=== PATIENT | female | born 1940 | race Caucasian/White ===

== ENCOUNTER → 2016-11-28 | Outpatient (CLI) | payer OTHER, BC ==
[~2016-11-28] MED LIST: AGG PO; AMLO-110 PO; CHOL4POW5 PO; CLR10 PO; GEMF600T3 PO; OLME40TA30 PO; TIMO0.2528 OPB
[2016-11-28 13:19] LABS: URINE APPEARANCE CLEAR (CLEAR); URINE BILIRUBIN NEG (NEG); URINE COLOR DK YELLOW; URINE EPITHELIAL CELL AUTO 0-5 /lpf (0-5); URINE NITRITE NEG (NEG); URINE PH 6.5 (4.5-7.5); URINE SPECIFIC GRAVITY 1.007 (1.000-1.030); UROBILINOGEN NEG (NEG)
[2016-11-28 13:24] LABS: MANUAL MICROSCOPIC REQUIRED? NO; REVIEW REQ? NO
== END | disposition home or self-care (01) ==
LOC: C.LAB1850 11:47
PROVIDERS: ATTEND Internal Medicine Pulmonary Disease
DX: N39.0 Urinary tract infection, site not specified (principal); R39.9 Unspecified symptoms and signs involving the genitourinary system

== ENCOUNTER → 2017-04-11 | Outpatient (CLI) | payer OTHER, BC ==
[2017-04-11 16:02] LABS: URINE APPEARANCE CLEAR (CLEAR); URINE BILIRUBIN NEG (NEG); URINE COLOR YELLOW; URINE NITRITE NEG (NEG); URINE PH 6.5 (4.5-7.5); URINE SPECIFIC GRAVITY 1.009 (1.000-1.030); UROBILINOGEN NEG (NEG)
[2017-04-11 16:15] LABS: MANUAL MICROSCOPIC REQUIRED? NO; REVIEW REQ? NO
== END | disposition home or self-care (01) ==
LOC: C.LAB1850 14:15
PROVIDERS: ATTEND Physician Assistant Medical
DX: R39.9 Unspecified symptoms and signs involving the genitourinary system (principal)

== ENCOUNTER → 2017-05-07 | Outpatient (CLI) | payer OTHER, BC ==
[2017-05-07 16:23] LABS: URINE APPEARANCE CLEAR (CLEAR); URINE BILIRUBIN NEG (NEG); URINE COLOR YELLOW; URINE NITRITE NEG (NEG); URINE PH 7.5 (4.5-7.5); URINE SPECIFIC GRAVITY 1.009 (1.000-1.030); UROBILINOGEN NEG (NEG)
[2017-05-07 16:34] LABS: MANUAL MICROSCOPIC REQUIRED? NO; REVIEW REQ? NO
== END | disposition home or self-care (01) ==
LOC: C.LAB1850 14:10
PROVIDERS: ATTEND Physician Assistant Medical
DX: R39.9 Unspecified symptoms and signs involving the genitourinary system (principal)

== ENCOUNTER → 2017-06-16 | Outpatient (CLI) | payer OTHER, BC ==
[2017-06-16 17:55] LABS: URINE APPEARANCE CLEAR (CLEAR); URINE BILIRUBIN NEG (NEG); URINE COLOR YELLOW; URINE NITRITE NEG (NEG); URINE PH 6.5 (4.5-7.5); URINE SPECIFIC GRAVITY 1.011 (1.000-1.030); UROBILINOGEN NEG (NEG)
[2017-06-16 17:58] LABS: MANUAL MICROSCOPIC REQUIRED? NO; REVIEW REQ? NO
== END | disposition home or self-care (01) ==
LOC: C.LAB1850 16:17
PROVIDERS: ATTEND Physician Assistant Medical
DX: R39.9 Unspecified symptoms and signs involving the genitourinary system (principal)

== ENCOUNTER → 2017-06-19 | Outpatient (CLI) | payer OTHER, BC ==
--- NOTE | 2017-06-19 11:37 | DIAGNOSTIC IMAGING REPORT ---
(RENAL)RETROPERITON COMP CLINICAL HISTORY: 77 years-old Female presenting with R39.9 Urinary symptom or signN39.0 Recurrent urinary tract infec. TECHNIQUE: Real-time grayscale and limited color Doppler ultrasound imaging of the kidneys and bladder was performed. COMPARISON: None. FINDINGS: Right kidney: Normal echogenicity. Right kidney measures 11.9 cm. No hydronephrosis. 3.8 cm simple appearing upper pole cyst. 4 mm hyperechogenic focus with subtle posterior shadowing and tingling artifact consistent with renal calculus. Normal perfusion. Left kidney: Normal echogenicity. Left kidney measures 11.4 cm. No hydronephrosis. 2.2 cm simple appearing cyst in the interpolar region. Additional subcentimeter cyst in the upper pole. Normal perfusion. Bladder: No bladder wall thickening. Bilateral ureteral jets present. Other: None. IMPRESSION: 1. 4 mm right renal calculus. No obstruction. 2. Bilateral simple renal cysts. Electronically signed by: Andrew Wong M.D. 06/19/2017 11:36 AM Dictated Date/Time: 06/19/2017 11:17 AM
== END | disposition home or self-care (01) ==
LOC: C.ULTR 10:21
PROVIDERS: ATTEND Physician Assistant Medical
DX: R39.9 Unspecified symptoms and signs involving the genitourinary system (principal); N28.1 Cyst of kidney, acquired; N20.0 Calculus of kidney

== ENCOUNTER → 2017-10-27 | Outpatient (CLI) | payer OTHER, BC ==
--- NOTE | 2017-10-28 14:37 | MAMMOGRAPHY REPORT ---
BILATERAL DIGITAL SCREENING MAMMOGRAM TOMOSYNTHESIS WITH CAD: 10/27/2017 CLINICAL HISTORY: Routine screening. TECHNIQUE: Breast tomosynthesis in addition to standard 2D mammography was performed. Current study was also evaluated with a Computer Aided Detection (CAD) system. COMPARISON: Comparison is made to exams dated: 08/08/2016 mammogram, 08/07/2015 mammogram, 08/02/2014 mammogram, 07/28/2013 mammogram, 07/27/2012 mammogram, and 07/25/2011 mammogram - [facility]. BREAST COMPOSITION: There are scattered areas of fibroglandular density in both breasts. FINDINGS: There is a possible area of architectural distortion in the lateral, middle to posterior l eft breast, best seen on cc tomosynthesis slice 29/61, for which additional spot compression tomosynt hesis views and possible ultrasound are recommended. There is stable nodular asymmetry in the slightly medial posterior left breast on the CC view, and st able asymmetry in the medial posterior right breast. Mild vascular calcification bilaterally. No oth er suspicious mass, architectural distortion or cluster of microcalcifications is seen. IMPRESSION: ACR BI-RADS CATEGORY 0: INCOMPLETE EVALUATION: NEED ADDITIONAL IMAGING EVALUATION The possible area of architectural distortion in the lateral left breast needs additional evaluation. The patient will be called to schedule an appointment. Approximately 10% of breast cancers are not detected with mammography. A negative mammographic report should not delay biopsy if a clinically suggestive mass is present. Ewa Pritchett M.D. ay/:10/27/2017 15:46:35 Electrician Wiring: David LIANG(R)(M), [facility] letter sent: Addl Imaging 0 BI-RADS Code: ACR BI-RADS Category 0: Incomplete Evaluation: Need Additional Imaging Evaluation
== END | disposition home or self-care (01) ==
LOC: C.MAMM 14:56
PROVIDERS: ATTEND Internal Medicine Pulmonary Disease
DX: Z12.31 Encounter for screening mammogram for malignant neoplasm of breast (principal); N64.89 Other specified disorders of breast

== ENCOUNTER → 2017-11-18 | Outpatient (CLI) | payer OTHER, BC ==
--- NOTE | 2017-11-19 15:23 | MAMMOGRAPHY REPORT ---
UNILATERAL LEFT DIGITAL DIAGNOSTIC MAMMOGRAM TOMOSYNTHESIS: 11/18/2017 CLINICAL HISTORY: Callback from screening mammography for possible area of architectural distortion i n the lateral left breast. TECHNIQUE: Spot compression tomosynthesis left cc and MLO views were obtained. COMPARISON: Comparison is made to exams dated: 10/27/2017 mammogram, 08/08/2016 mammogram, 08/07/2015 m ammogram, 02/22/2015 mammogram, 08/02/2014 mammogram, and 07/28/2013 mammogram - [facility]. BREAST COMPOSITION: There are scattered areas of fibroglandular density in the left breast. FINDINGS: The supplemental spot compression tomosynthesis views of the left upper outer breast demons trate no persistent distortion in the area of concern in the lateral posterior breast, best seen on t he CC view. There is no focal area of distortion, suspicious mass or other suspicious abnormality. An asymmetry in the lateral left breast on the CC view has been present and appears stable dating noah k to at least 2006, therefore considered benign. Recommend return to annual screening mammography sc jesus. IMPRESSION: ACR BI-RADS CATEGORY 2: BENIGN There is no persistent architectural distortion in the lateral, middle to posterior left breast along the anterior aspect of a stable asymmetry with the supplemental spot compression tomosynthesis views . This most likely represented overlapping fibrolinear markings, artifactual due to positioning. Th ere is no mammographic evidence of malignancy in the left breast. Recommend return to annual screeni ng mammography schedule. Approximately 10% of breast cancers are not detected with mammography. A negative mammographic report should not delay biopsy if a clinically suggestive mass is present. Ewa Pritchett M.D. ay/:11/18/2017 14:12:25 Trap Operator: Noris LIANG(R)(M), [facility] letter sent: Normal /2 BI-RADS Code: ACR BI-RADS Category 2: Benign
== END | disposition home or self-care (01) ==
LOC: C.MAMM 13:47
PROVIDERS: ATTEND Internal Medicine Pulmonary Disease
DX: N64.89 Other specified disorders of breast (principal)

== ENCOUNTER → 2017-11-20 | Outpatient (CLI) | payer OTHER, BC ==
[2017-11-20 13:14] LABS: BLOOD UREA NITROGEN 13 mg/dl (7-18); CALCIUM 9.3 mg/dl (8.5-10.1); CARBON DIOXIDE 27 mmol/L (21-32); CREATININE 0.68 mg/dl (0.60-1.20); GLUCOSE 80 mg/dl (70-99); POTASSIUM 3.9 mmol/L (3.5-5.1); SODIUM 123 mmol/L (136-145)
== END | disposition home or self-care (01) ==
LOC: C.LAB1850 11:36
PROVIDERS: ATTEND Physician Assistant Medical
DX: I10 Essential (primary) hypertension (principal)

== ENCOUNTER → 2017-12-01 | Outpatient (CLI) | payer OTHER, BC ==
[2017-12-01 15:01] LABS: BLOOD UREA NITROGEN 13 mg/dl (7-18); CALCIUM 9.1 mg/dl (8.5-10.1); CARBON DIOXIDE 28 mmol/L (21-32); CREATININE 0.77 mg/dl (0.60-1.20); GLUCOSE 90 mg/dl (70-99); POTASSIUM 3.6 mmol/L (3.5-5.1); SODIUM 126 mmol/L (136-145)
== END | disposition home or self-care (01) ==
LOC: C.LAB1850 13:39
PROVIDERS: ATTEND Physician Assistant Medical
DX: E87.1 Hypo-osmolality and hyponatremia (principal)

== ENCOUNTER 2023-07-14 10:23 | Observation (INO) ==
[2023-07-14] MEDS ORDERED: ASPIRIN CHEW 324 MG PO STA (10:42)
--- NOTE | 2023-07-14 10:44 | Emergency Department Note ---
Impression & Plan Chest pain, Acute UTI (urinary tract infection) ED Provider Note HISTORY OF PRESENT ILLNESS: Patient is an 83-year-old female presenting with substernal chest pain and shortness of breath. Patient reports symptoms started about 1 hour prior to arrival while she was walking up a short incline. Reports her shortness of breath has resolved but her chest tightness has continued. Denies ever having chest tightness like this before. Denies any DVT or PE history. Denies any history of cardiac stents. She is on generic Plavix for history of carotid artery narrowing. Reports that her chest pain feels like a tightness and like she cannot take a deep breath. Denies any nausea or vomiting. Denies any abdominal pain or back pain. Patient does report some dysuria over the last few days. She took a dose of Azo's yesterday. ROS: as above PHYSICAL EXAM: Constitutional: Patient appears in no acute distress. HENT: Head: Normocephalic and atraumatic. Eyes: EOMI, PERRL Mouth/Throat: Mucous membranes moist. Neck: Trachea midline. Neck supple. Cardiovascular: RRR, No murmurs, rubs or gallops. Intact distal pulses. Pulmonary/Chest: No respiratory distress. Breath sounds clear and equal bilaterally. No wheezes or rales Abdominal: Abdomen soft, no tenderness, rebound or guarding. Musculoskeletal: No edema, tenderness or deformity noted. Skin: Warm and dry. No rash, erythema, pallor or cyanosis Psychiatric: Appropriate mood and affect for situation. Neurological: Alert and keenly responsive. CN II-XII grossly intact, moving all extremities equally and fully. MDM: - Vitals signs stable. - History obtained via patient. Patient presents with chest pain and shortness of breath. Patient reports that about 1 hour prior to arrival she was walking up a short incline when she developed substernal chest tightness and shortness of breath. She reports her shortness of breath has improved but her chest night's has continued. Denies any DVT or PE history. She denies any history of cardiac stents. She is on Plavix for history of carotid artery stenosis. She has never had a stress test performed. Denies any nausea, vomiting, abdominal pain or back pain. - Chronic conditions affecting care: HTN; HLD - Differential diagnoses include, but are not limited to: Acute coronary syndrome; pulmonary embolism; dissection; tension pneumothorax; esophageal rupture; pneumonia - Order placed for continuous cardiac monitoring. At this time, monitor showed rate of 77 bpm with normal sinus rhythm, per my interpretation. - External medical records reviewed. No previous heart catheterization or stress test noted in chart. - EKG reviewed by myself showed normal sinus rhythm. Rate 93 bpm. QTc 425. No acute ischemic changes - Laboratory workup interpreted by myself showed normal WBC; hyponatremia (Na 128); normal creatinine; normal troponin; elevated dimer (640) - Biofire negative - CXR negative for pneumonia, per my interpretation - CT PE showed no PE but noted to have 7 mm irregular density in left lung apex. - Repeat troponin WNL. - UA showed evidence of infection. Given 2g IV rocephin. - Patient given 243 mg PO aspirin in ER, as she took 81 mg earlier today. - Heart score 4 (History +1 moderately suspicious; EKG +0; Age +2; Risk factors +1; Initial troponin +0), amounting to a moderate score. - Patient has had no formal chest pain rule out. She reports she has never had a stress test done. - Discussion was had with psychotherapist social worker about patient's case and need for admission - Hospitalist consulted for admission - Patient admitted to [facility] for further evaluation and management. ASSESSMENT AND PLAN: Diagnosis: Chest pain; UTI Plan: Admit Past Med/Surg History Medical History Arteriosclerotic cardiovascular disease (ASCVD) Chronic cerebral ischemia Dyslipidemia Glaucoma History of Mohs micrographic surgery for skin cancer History of recurrent UTIs History of skin cancer Hypertension Osteopenia Seasonal allergies Sensorineural hearing loss of both ears Transient ischemic attack Vulvitis Surgical History H/O carotid endarterectomy History of anesthesia reaction History of cataract surgery History of tooth extraction History of total hysterectomy with bilateral salpingo-oophorectomy (BSO) Hx of colonoscopy (~2012) S/P nasal surgery Family History Mother Hearing loss Hypertension Asthma Grandfather Stroke Grandmother Colorectal cancer Other Allergies Dementia No family history of adverse response to anesthesia No family history of bleeding disorder Denies family history of Ovarian cancer Heart disease Kidney disease Breast cancer Uterine cancer Social History Smoking Status: Former smoker Second Hand Exposure: Yes ( A CHILD); Do You Dip or Chew Tobacco: No; Hx Alcohol Use: No Hx Substance Use: No Preferred Language: [place] Assistant Required: No Beliefs That Will Affect Care: None marital status: Current Living Situation: Spouse current occupational status: retired Feels Safe at Home: Yes Assistive Devices: Hearing Aid - Bilateral Allergies Allergies Allergy/AdvReac Type Severity Reaction Status Date / Time [id number] Reductase Allergy Intermediate numbness, Verified 03/26/23 14:58 Inhibitor twitches [[id number] Reductase Inhibitor] Sulfa (Sulfonamide AdvReac Intermediate Feeling Verified 03/26/23 14:58 Antibiotics) "bad" Home Meds Home Medications Medication Instructions Recorded Confirmed magnesium 1 cap PO DAILY 07/14/23 07/14/23 multivitamin with minerals 1 tab PO DAILY 07/14/23 07/14/23 (Hair,Skin and Nails tablet) Previous Rx's Medication Instructions Recorded hydralazine 25 mg tablet 25 mg PO .COMPLEX #30 tabs 10/11/21 aspirin 25 mg-dipyridamole 200 mg See Rx Instructions .Route 09/24/22 capsule,ext.release 12 hr .COMPLEX #180 caps multiphase amlodipine 5 mg tablet 5 mg PO DAILY #90 tabs 09/26/22 verapamil 360 mg 24 hr 360 mg PO DAILY #90 caps 09/26/22 capsule,extended release spironolactone 50 mg tablet 50 mg PO DAILY #90 tabs 12/19/22 cholestyramine-aspartame 4 gram 4 g PO BID #180 packets 05/12/23 oral powder (Prevalite) Results & Data (ED) Vital Signs Vital Signs - 24 hr 07/14/23 10:30 07/14/23 10:38 07/14/23 10:38 Temperature 36.4 C L Temperature Source Temporal Artery Scan Pulse Rate 97 H Pulse Rate [Apical] 90 Pulse Rate from SpO2 Sensor Respiratory Rate 20 20 Respiratory Effort / Characteristics Non-Labored Respiratory Depth Normal Blood Pressure 139/73 Blood Pressure [Right Arm] 150/73 H Blood Pressure Mean 95 Blood Pressure Mean [Right Arm] 98 Blood Pressure Position [Right Arm] Pulse Oximetry 96 95 95 Oxygen Delivery Method Room Air Room Air Room Air Sepsis Recent Fever Within 48 Hours No Sepsis New/Unexplained Change in Mental Status N/A Sepsis Action Taken by Nursing No Action Required 07/14/23 10:38 07/14/23 10:40 07/14/23 10:50 Temperature Temperature Source Pulse Rate 84 82 Pulse Rate [Apical] Pulse Rate from SpO2 Sensor 84 82 Respiratory Rate 17 17 Respiratory Effort / Characteristics Respiratory Depth Blood Pressure Blood Pressure [Right Arm] Blood Pressure Mean Blood Pressure Mean [Right Arm] Blood Pressure Position [Right Arm] Pulse Oximetry 95 96 95 Oxygen Delivery Method Room Air Sepsis Recent Fever Within 48 Hours Sepsis New/Unexplained Change in Mental Status Sepsis Action Taken by Nursing 07/14/23 11:00 07/14/23 11:10 07/14/23 11:20 Temperature Temperature Source Pulse Rate 83 85 86 Pulse Rate [Apical] Pulse Rate from SpO2 Sensor 83 84 85 Respiratory Rate 22 19 20 Respiratory Effort / Characteristics Respiratory Depth Blood Pressure Blood Pressure [Right Arm] Blood Pressure Mean Blood Pressure Mean [Right Arm] Blood Pressure Position [Right Arm] Pulse Oximetry 95 96 94 Oxygen Delivery Method Sepsis Recent Fever Within 48 Hours Sepsis New/Unexplained Change in Mental Status Sepsis Action Taken by Nursing 07/14/23 11:30 07/14/23 11:40 07/14/23 11:50 Temperature Temperature Source Pulse Rate 79 73 74 Pulse Rate [Apical] Pulse Rate from SpO2 Sensor 80 73 72 Respiratory Rate 19 14 16 Respiratory Effort / Characteristics Respiratory Depth Blood Pressure Blood Pressure [Right Arm] Blood Pressure Mean Blood Pressure Mean [Right Arm] Blood Pressure Position [Right Arm] Pulse Oximetry 96 98 96 Oxygen Delivery Method Sepsis Recent Fever Within 48 Hours Sepsis New/Unexplained Change in Mental Status Sepsis Action Taken by Nursing 07/14/23 12:00 07/14/23 12:10 07/14/23 12:25 Temperature Temperature Source Pulse Rate 70 71 Pulse Rate [Apical] Pulse Rate from SpO2 Sensor 70 71 77 Respiratory Rate 11 L 23 Respiratory Effort / Characteristics Respiratory Depth Blood Pressure Blood Pressure [Right Arm] Blood Pressure Mean Blood Pressure Mean [Right Arm] Blood Pressure Position [Right Arm] Pulse Oximetry 96 98 94 Oxygen Delivery Method Sepsis Recent Fever Within 48 Hours Sepsis New/Unexplained Change in Mental Status Sepsis Action Taken by Nursing 07/14/23 13:07 07/14/23 12:35 07/14/23 13:00 Temperature Temperature Source Pulse Rate 81 90 Pulse Rate [Apical] Pulse Rate from SpO2 Sensor 69 89 Respiratory Rate 24 Respiratory Effort / Characteristics Respiratory Depth Blood Pressure Blood Pressure [Right Arm] Blood Pressure Mean Blood Pressure Mean [Right Arm] Blood Pressure Position [Right Arm] Pulse Oximetry 97 93 Oxygen Delivery Method Sepsis Recent Fever Within 48 Hours Sepsis New/Unexplained Change in Mental Status Sepsis Action Taken by Nursing 07/14/23 13:10 07/14/23 15:02 07/14/23 17:05 Temperature Temperature Source Pulse Rate 73 78 Pulse Rate [Apical] 77 Pulse Rate from SpO2 Sensor 74 Respiratory Rate 15 16 Respiratory Effort / Characteristics Respiratory Depth Blood Pressure Blood Pressure [Right Arm] 141/92 H Blood Pressure Mean Blood Pressure Mean [Right Arm] 108 Blood Pressure Position [Right Arm] Semi-fowlers Pulse Oximetry 96 95 Oxygen Delivery Method Room Air Sepsis Recent Fever Within 48 Hours Sepsis New/Unexplained Change in Mental Status Sepsis Action Taken by Nursing 07/14/23 17:09 Temperature Temperature Source Pulse Rate Pulse Rate [Apical] 77 Pulse Rate from SpO2 Sensor Respiratory Rate 17 Respiratory Effort / Characteristics Respiratory Depth Blood Pressure Blood Pressure [Right Arm] 121/74 Blood Pressure Mean Blood Pressure Mean [Right Arm] 89 Blood Pressure Position [Right Arm] Semi-fowlers Pulse Oximetry 95 Oxygen Delivery Method Room Air Sepsis Recent Fever Within 48 Hours Sepsis New/Unexplained Change in Mental Status Sepsis Action Taken by Nursing Laboratory Data 07/14/23 10:38 07/14/23 10:38 Lab Results 07/14/23 07/14/23 07/14/23 Range/Units 10:35 10:38 10:38 WBC 7.91 (4.8-10.8) K/ul RBC 4.43 (4.20-5.40) M/uL Hgb 13.8 (12.0-16.0) g/dl Hct 40.5 (37.0-47.0) % MCV 91.4 (80.0-100.0) fL MCH 31.2 (25.0-34.0) pg MCHC 34.1 (32.0-36.0) g/dL RDW Std Deviation 42.0 (36.4-46.3) fL RDW Coeff of Renny 12.6 (11.5-14.5) % Plt Count 412 H (130-400) K/uL MPV 9.0 L (9.4-12.4) fL Immature Gran % (Auto) 0.5 % Neut % (Auto) 69.3 % Lymph % (Auto) 18.8 % Dyer % (Auto) 9.6 % Eos % (Auto) 1.3 % Baso % (Auto) 0.5 % Neut # (Auto) 5.48 (1.40-6.50) K/uL Lymph # (Auto) 1.49 (1.20-3.40) K/uL Dyer # (Auto) 0.76 H (0.11-0.59) K/uL Eos # (Auto) 0.10 (0.00-0.50) K/uL Baso # (Auto) 0.04 (0.00-0.20) K/uL Immature Gran # (Auto) 0.04 (0.01-0.20) K/uL PT 10.6 (9.0-12.0) Seconds INR 1.0 (0.9-1.1) D-Dimer 640 H* (0-500) ug/L FEU VBG pH (7.36-7.41) VBG pCO2 (38-50) mmHg VBG pO2 mmHg VBG HCO3 mmol/L VBG O2 Saturation % VBG Base Excess mEq/L Sodium (136-145) mmol/L Potassium (3.5-5.1) mmol/L Chloride (98-107) mmol/L Carbon Dioxide (21-32) mmol/L Anion Gap (3-11) BUN (6-23) mg/dl Creatinine (0.6-1.2) mg/dl Est Cr Clr Drug Dosing ml/min Est GFR ( Amer) ml/min Est GFR (Non-Af Amer) ml/min BUN/Creatinine Ratio (10-20) Glucose (70-99(Fasting)) mg/dl Calcium (8.6-10.3) mg/dl Magnesium (1.7-2.4) mg/dl Total Bilirubin (0.2-1.0) mg/dl AST (13-39) U/L ALT (7-52) U/L Alkaline Phosphatase (34-104) U/L Troponin I High Sens (0-14) pg/ml B-Natriuretic Peptide (0-100) pg/ml Total Protein (6.0-8.3) gm/dl Albumin (3.4-5.0) gm/dl Globulin (2.5-4.0) gm/dl Albumin/Globulin Ratio (0.9-2) Urine Color Urine Appearance (Clear) Urine pH (4.5-7.5) Ur Specific [place] (1.000-1.030) Urine Protein (Negative) Urine Glucose (UA) (Negative) Urine Ketones (Negative) Urine Blood (Negative) Urine Nitrite (Negative) Urine Bilirubin (Negative) Urine Urobilinogen (Negative) Ur Leukocyte Esterase (Negative) Urine WBC (Auto) (0-5) /hpf Urine RBC (Auto) (0-4) /hpf U Hyaline Cast (Auto) (0-5) /lpf U Epithel Cells (Auto) (0-5) /lpf Urine Bacteria (Auto) (Negative) Adenovirus (PCR) Not Detected (NotDetected) B. pertussis DNA (PCR) Not Detected (NotDetected) B.parapertussis DNA PCR Not Detected (NotDetected) C. pneumoniae DNA (PCR) Not Detected (NotDetected) Coronavirus OC43 (PCR) Not Detected (NotDetected) Coronavirus HKU1 (PCR) Not Detected (NotDetected) Coronavirus 229E (PCR) Not Detected (NotDetected) SARS-CoV-2 (PCR) Not Detected (NotDetected) Coronavirus NL63 (PCR) Not Detected (NotDetected) Human Metapneumovir PCR Not Detected (NotDetected) Influenza Type A (PCR) Not Detected (NotDetected) Influenza Type B (PCR) Not Detected (NotDetected) M. pneumoniae (PCR) Not Detected (NotDetected) Parainfluenza 1 (PCR) Not Detected (NotDetected) Parainfluenza 2 (PCR) Not Detected (NotDetected) Parainfluenza 3 (PCR) Not Detected (NotDetected) Parainfluenza 4 (PCR) Not Detected (NotDetected) RSV (PCR) Not Detected (NotDetected) Entero/Rhino (PCR) Not Detected (NotDetected) 07/14/23 07/14/23 07/14/23 Range/Units 10:38 10:38 10:41 WBC (4.8-10.8) K/ul RBC (4.20-5.40) M/uL Hgb (12.0-16.0) g/dl Hct (37.0-47.0) % MCV (80.0-100.0) fL MCH (25.0-34.0) pg MCHC (32.0-36.0) g/dL RDW Std Deviation (36.4-46.3) fL RDW Coeff of Renny (11.5-14.5) % Plt Count (130-400) K/uL MPV (9.4-12.4) fL Immature Gran % (Auto) % Neut % (Auto) % Lymph % (Auto) % Dyer % (Auto) % Eos % (Auto) % Baso % (Auto) % Neut # (Auto) (1.40-6.50) K/uL Lymph # (Auto) (1.20-3.40) K/uL Dyer # (Auto) (0.11-0.59) K/uL Eos # (Auto) (0.00-0.50) K/uL Baso # (Auto) (0.00-0.20) K/uL Immature Gran # (Auto) (0.01-0.20) K/uL PT (9.0-12.0) Seconds INR (0.9-1.1) D-Dimer (0-500) ug/L FEU VBG pH 7.38 (7.36-7.41) VBG pCO2 41 (38-50) mmHg VBG pO2 43 mmHg VBG HCO3 24 mmol/L VBG O2 Saturation 78.4 % VBG Base Excess -0.8 mEq/L Sodium 128 L (136-145) mmol/L Potassium 4.2 (3.5-5.1) mmol/L Chloride 97 L (98-107) mmol/L Carbon Dioxide 24 (21-32) mmol/L Anion Gap 7 (3-11) BUN 13 (6-23) mg/dl Creatinine 0.74 (0.6-1.2) mg/dl Est Cr Clr Drug Dosing 50.1 ml/min Est GFR ( Amer) 86.2 ml/min Est GFR (Non-Af Amer) 74.4 ml/min BUN/Creatinine Ratio 17.6 (10-20) Glucose 103 H (70-99(Fasting)) mg/dl Calcium 9.6 (8.6-10.3) mg/dl Magnesium 2.1 (1.7-2.4) mg/dl Total Bilirubin 0.4 (0.2-1.0) mg/dl AST 16 (13-39) U/L ALT 13 (7-52) U/L Alkaline Phosphatase 111 H (34-104) U/L Troponin I High Sens 2.8 (0-14) pg/ml B-Natriuretic Peptide 33 (0-100) pg/ml Total Protein 8.2 (6.0-8.3) gm/dl Albumin 4.5 (3.4-5.0) gm/dl Globulin 3.7 (2.5-4.0) gm/dl Albumin/Globulin Ratio 1.2 (0.9-2) Urine Color Urine Appearance (Clear) Urine pH (4.5-7.5) Ur Specific [place] (1.000-1.030) Urine Protein (Negative) Urine Glucose (UA) (Negative) Urine Ketones (Negative) Urine Blood (Negative) Urine Nitrite (Negative) Urine Bilirubin (Negative) Urine Urobilinogen (Negative) Ur Leukocyte Esterase (Negative) Urine WBC (Auto) (0-5) /hpf Urine RBC (Auto) (0-4) /hpf U Hyaline Cast (Auto) (0-5) /lpf U Epithel Cells (Auto) (0-5) /lpf Urine Bacteria (Auto) (Negative) Adenovirus (PCR) (NotDetected) B. pertussis DNA (PCR) (NotDetected) B.parapertussis DNA PCR (NotDetected) C. pneumoniae DNA (PCR) (NotDetected) Coronavirus OC43 (PCR) (NotDetected) Coronavirus HKU1 (PCR) (NotDetected) Coronavirus 229E (PCR) (NotDetected) SARS-CoV-2 (PCR) (NotDetected) Coronavirus NL63 (PCR) (NotDetected) Human Metapneumovir PCR (NotDetected) Influenza Type A (PCR) (NotDetected) Influenza Type B (PCR) (NotDetected) M. pneumoniae (PCR) (NotDetected) Parainfluenza 1 (PCR) (NotDetected) Parainfluenza 2 (PCR) (NotDetected) Parainfluenza 3 (PCR) (NotDetected) Parainfluenza 4 (PCR) (NotDetected) RSV (PCR) (NotDetected) Entero/Rhino (PCR) (NotDetected) 07/14/23 07/14/23 Range/Units 14:10 Unknown WBC (4.8-10.8) K/ul RBC (4.20-5.40) M/uL Hgb (12.0-16.0) g/dl Hct (37.0-47.0) % MCV (80.0-100.0) fL MCH (25.0-34.0) pg MCHC (32.0-36.0) g/dL RDW Std Deviation (36.4-46.3) fL RDW Coeff of Renny (11.5-14.5) % Plt Count (130-400) K/uL MPV (9.4-12.4) fL Immature Gran % (Auto) % Neut % (Auto) % Lymph % (Auto) % Dyer % (Auto) % Eos % (Auto) % Baso % (Auto) % Neut # (Auto) (1.40-6.50) K/uL Lymph # (Auto) (1.20-3.40) K/uL Dyer # (Auto) (0.11-0.59) K/uL Eos # (Auto) (0.00-0.50) K/uL Baso # (Auto) (0.00-0.20) K/uL Immature Gran # (Auto) (0.01-0.20) K/uL PT (9.0-12.0) Seconds INR (0.9-1.1) D-Dimer (0-500) ug/L FEU VBG pH (7.36-7.41) VBG pCO2 (38-50) mmHg VBG pO2 mmHg VBG HCO3 mmol/L VBG O2 Saturation % VBG Base Excess mEq/L Sodium (136-145) mmol/L Potassium (3.5-5.1) mmol/L Chloride (98-107) mmol/L Carbon Dioxide (21-32) mmol/L Anion Gap (3-11) BUN (6-23) mg/dl Creatinine (0.6-1.2) mg/dl Est Cr Clr Drug Dosing ml/min Est GFR ( Amer) ml/min Est GFR (Non-Af Amer) ml/min BUN/Creatinine Ratio (10-20) Glucose (70-99(Fasting)) mg/dl Calcium (8.6-10.3) mg/dl Magnesium (1.7-2.4) mg/dl Total Bilirubin (0.2-1.0) mg/dl AST (13-39) U/L ALT (7-52) U/L Alkaline Phosphatase (34-104) U/L Troponin I High Sens 2.7 (0-14) pg/ml B-Natriuretic Peptide (0-100) pg/ml Total Protein (6.0-8.3) gm/dl Albumin (3.4-5.0) gm/dl Globulin (2.5-4.0) gm/dl Albumin/Globulin Ratio (0.9-2) Urine Color Dark Yellow Urine Appearance Clear (Clear) Urine pH 7.5 (4.5-7.5) Ur Specific [place] 1.007 (1.000-1.030) Urine Protein Negative (Negative) Urine Glucose (UA) Negative (Negative) Urine Ketones Negative (Negative) Urine Blood Negative (Negative) Urine Nitrite Positive A (Negative) Urine Bilirubin Negative (Negative) Urine Urobilinogen Negative (Negative) Ur Leukocyte Esterase 2+ H (Negative) Urine WBC (Auto) >30 H (0-5) /hpf Urine RBC (Auto) 0-4 (0-4) /hpf U Hyaline Cast (Auto) 1-5 (0-5) /lpf U Epithel Cells (Auto) 0-5 (0-5) /lpf Urine Bacteria (Auto) 1+ H (Negative) Adenovirus (PCR) (NotDetected) B. pertussis DNA (PCR) (NotDetected) B.parapertussis DNA PCR (NotDetected) C. pneumoniae DNA (PCR) (NotDetected) Coronavirus OC43 (PCR) (NotDetected) Coronavirus HKU1 (PCR) (NotDetected) Coronavirus 229E (PCR) (NotDetected) SARS-CoV-2 (PCR) (NotDetected) Coronavirus NL63 (PCR) (NotDetected) Human Metapneumovir PCR (NotDetected) Influenza Type A (PCR) (NotDetected) Influenza Type B (PCR) (NotDetected) M. pneumoniae (PCR) (NotDetected) Parainfluenza 1 (PCR) (NotDetected) Parainfluenza 2 (PCR) (NotDetected) Parainfluenza 3 (PCR) (NotDetected) Parainfluenza 4 (PCR) (NotDetected) RSV (PCR) (NotDetected) Entero/Rhino (PCR) (NotDetected) Administered Medications Discontinued Medications Aspirin (Aspirin Chew 324 Mg) 243 mg PO NOW STA Stop: 07/14/23 10:43 Last Admin: 07/14/23 10:47 Dose: 243 mg Documented By: KV Ceftriaxone Sodium (Rocephin) 2,000 mg in 70 mls @ 140 mls/hr IV NOW STA Stop: 07/14/23 14:21 Last Infusion: 07/14/23 14:59 Dose: 0 mls/hr Documented By: Admin: 07/14/23 14:07 Dose: 140 mls/hr Documented By: KV Sodium Chloride (Nss) 500 mls @ 999 mls/hr IV .Q31M ONE Stop: 07/14/23 14:30 Last Infusion: 07/14/23 15:00 Dose: 0 mls/hr Documented By: Admin: 07/14/23 14:07 Dose: 999 mls/hr Documented By: KV Ioversol (Optiray 320 500ml) 118 ml IV ONCE ONE Stop: 07/14/23 13:00 Last Admin: 07/14/23 13:00 Dose: 118 ml Documented By: KSF Imaging Data Radiologist's Impression: Chest X-Ray 07/14/23 10:34 XR chest 1V portable HISTORY: Dyspnea COMPARISON: Chest 03/23/2018. FINDINGS: No pneumothorax. No pleural effusions. The cardiac silhouette remains top normal in size. No evidence for pulmonary edema. No new focal lung co nsolidations to suggest a pneumonia. A few linear densities the right lung base favor subsegmental atelectasis or scarring. This is similar to the prior study. Calcifications again noted within the aortic knob. There is a punctate calcified granuloma within the left lung apex. No acute fractures identified. IMPRESSION: No significant change compared to the prior study. No acute process. ACT 112: Negative or not required by law. Electronically signed by: Jaleel Amezquita M.D. 07/14/2023 10:49 AM Chest CTA 07/14/23 12:04 CHEST CTA for PULMONARY ARTERIES CT DOSE: HISTORY: Shortness of breath. TECHNIQUE: Multiaxial CT images of the chest were performed following the intravenous administration of contrast to evaluate the pulmonary arteries. 3D/Maximal intensity projection images were also obtained. Sagittal and coronal reformations were also reviewed. A dose lowering technique was utilized adhering to the principles of ALARA. COMPARISON STUDY: None. FINDINGS: Calcified plaque within the normal caliber thoracic aorta. No evidence for an aortic dissection. The heart is mildly enlarged. No filling defects within the pulmonary arteries to suggest a pulmonary embolus. The thyroid gland enhances normally. Limited views of the upper abdomen demonstrate normal liver and spleen. Partially visualized hypodense lesions within the kidneys favor cysts. Normal caliber esophagus. No mediastinal or hilar lymphadenopathy. No acute fractures identified. No pneumothorax. The central airways are patent. Mild biapical pleural-parenchymal scarlike densities with a few punctate pleural calcifications. This is likely chronic. There is a 7 mm focal irregular density within the left lung apex image 154. This may represent a small focus of inflammatory/infectious change. Otherwise, no focal lung consolidations to suggest a pneumonia. No evidence for pulmonary edema. There are mild dependent changes seen within the lung bases. A 4 mm subpleural nodule within the right middle lobe on image 55. This is likely benign. IMPRESSION: 1. No evidence for a pulmonary embolus. 2. Mild cardiomegaly. 3. A 7 mm focal irregular density within the left lung apex. This favors a small focus of inflammatory/infectious change. However, [address] follow-up recommended to ensure stability/resolution. ACT 112: Positive. There are findings on this exam that require communication between the performing entity and the patient following Patient Test Result Inf ormation Act ([place] Act 112) guidelines. Electronically signed by: Jaleel Amezquita M.D. 07/14/2023 1:14 PM Discharge Plan Visit Data Chief Complaint: Shortness of Breath/Dyspnea Stated Complaint: HEAVINESS IN CHEST; SOB ED Provider: Odalys Sotelo Discharge Problem: Chest pain, Acute UTI (urinary tract infection) Forms Stand Alone Forms: My [facility] Prescriptions Prescriptions: No Action hydralazine 25 mg tablet 25 mg PO .COMPLEX Qty: 30 2RF Rx Instructions: TAKE 1 TABLET EVERY 8 HOURS PRN SBP >160 mmHg; aspirin-dipyridamole 25-200 mg capsule, ER multiphase 12 hr See Rx Instructions .ROUTE .COMPLEX Qty: 180 3RF Dose Instruction: TAKE 1 CAPSULE TWICE DAILY Rx Instructions: TAKE 1 CAPSULE TWICE DAILY verapamil 360 mg capsule,ext rel. pellets 24 hr 360 mg PO DAILY Qty: 90 3RF Patient Comments: hs amlodipine 5 mg tablet 5 mg PO DAILY Qty: 90 3RF Patient Comments: hs spironolactone 50 mg tablet 50 mg PO DAILY Qty: 90 3RF Patient Comments: HS Prevalite 4 gram powder 4 g PO BID Qty: 180 3RF Hair,Skin and Nails Tablet 1 tab PO DAILY magnesium 1 cap PO DAILY Rx Instructions: Patient not sure of strength Referrals Referrals: Madi Barron MD [Primary Care Provider] -
--- NOTE | 2023-07-14 10:51 | XRay Report ---
XR chest 1V portable HISTORY: Dyspnea COMPARISON: Chest 03/23/2018. FINDINGS: No pneumothorax. No pleural effusions. The cardiac silhouette remains top normal in size. N o evidence for pulmonary edema. No new focal lung consolidations to suggest a pneumonia. A few linear densities the right lung base favor subsegmental atelectasis or scarring. This is similar to the mandeep or study. Calcifications again noted within the aortic knob. There is a punctate calcified granuloma within the left lung apex. No acute fractures identified. IMPRESSION: No significant change compared to the prior study. No acute process. ACT 112: Negative or not required by law. Electronically signed by: Jaleel Amezquita M.D. 07/14/2023 10:49 AM
[2023-07-14 11:06] LABS: Basophils # (auto) 0.04 K/uL (0.00-0.20); Basophils % (auto) 0.5 %; Eosinophils % (auto) 1.3 %; Hematocrit (blood only) 40.5 % (37.0-47.0); Hemoglobin 13.8 g/dl (12.0-16.0); Immature Granulocytes # (auto) 0.04 K/uL (0.01-0.20); Immature Granulocytes % (auto) 0.5 %; Lymphocytes # (auto) 1.49 K/uL (1.20-3.40); Lymphocytes % (auto) 18.8 %; Mean Corpuscular Hemoglobin 31.2 pg (25.0-34.0); Mean Corpuscular Hgb Conc 34.1 g/dL (32.0-36.0); Mean Corpuscular Volume 91.4 fL (80.0-100.0); Monocytes # (auto) 0.76 K/uL (0.11-0.59); Monocytes % (auto) 9.6 %; Neutrophils # (auto) 5.48 K/uL (1.40-6.50); Neutrophils % (auto) 69.3 %; Platelet Count 412 K/uL (130-400); RDW Coefficient of Variation 12.6 % (11.5-14.5); Red Blood Count 4.43 M/uL (4.20-5.40); White Blood Count 7.91 K/ul (4.8-10.8)
[2023-07-14 11:10] LABS: Base Excess VBG -0.8 mEq/L; HCO3 VBG 24 mmol/L; Oxygen Saturation VBG 78.4 %; PCO2 VBG 41 mmHg (38-50); PO2 VBG 43 mmHg; pH VBG 7.38 (7.36-7.41)
[2023-07-14 11:26] LABS: Albumin Globulin Ratio 1.2 (0.9-2); Albumin Level 4.5 gm/dl (3.4-5.0); BUN Creatinine Ratio 17.6 (10-20); Bilirubin,Total 0.4 mg/dl (0.2-1.0); Calcium 9.6 mg/dl (8.6-10.3); Creatinine Clr Calc Pharmacy 50.1 ml/min; Est GFR (African American) 86.2 ml/min; Est GFR (Non-African American) 74.4 ml/min; Globulin 3.7 gm/dl (2.5-4.0); Magnesium 2.1 mg/dl (1.7-2.4); Potassium 4.2 mmol/L (3.5-5.1); Total Protein 8.2 gm/dl (6.0-8.3)
[2023-07-14 11:32] LABS: Troponin I High Sensitivity 2.8 pg/ml (0-14)
[2023-07-14 11:33] LABS: Prothrombin Time 10.6 Seconds (9.0-12.0)
[2023-07-14 11:40] LABS: D Dimer 640 ug/L FEU (0-500)
[2023-07-14 12:07] LABS: Adenovirus PCR Not Detected (NotDetected); Bordetella parapertussis PCR Not Detected (NotDetected); Bordetella pertussis PCR Not Detected (NotDetected); Chlamydia pneumoniae PCR Not Detected (NotDetected); Coronavirus 229E PCR Not Detected (NotDetected); Coronavirus CoV-2 (COVID19)PCR Not Detected (NotDetected); Coronavirus HKU1 PCR Not Detected (NotDetected); Coronavirus NL63 PCR Not Detected (NotDetected); Coronavirus OC43PCR Not Detected (NotDetected); Human Metapneumovirus PCR Not Detected (NotDetected); Influenza A PCR Not Detected (NotDetected); Influenza B PCR Not Detected (NotDetected); Mycoplasma pneumoniae PCR Not Detected (NotDetected); Parainfluenza Virus 1 PCR Not Detected (NotDetected); Parainfluenza Virus 2 PCR Not Detected (NotDetected); Parainfluenza Virus 3 PCR Not Detected (NotDetected); Parainfluenza Virus 4 PCR Not Detected (NotDetected); Respiratory Syncytial VirusPCR Not Detected (NotDetected); Rhinovirus/Enterovirus PCR Not Detected (NotDetected)
[2023-07-14] MEDS ORDERED: OPTIRAY 320 500ml IV ONE (12:59)
--- NOTE | 2023-07-14 13:16 | CT Scan Report ---
CHEST CTA for PULMONARY ARTERIES CT DOSE: HISTORY: Shortness of breath. TECHNIQUE: Multiaxial CT images of the chest were performed following the intravenous administration of contrast to evaluate the pulmonary arteries. 3D/Maximal intensity projection images were also obta ined. Sagittal and coronal reformations were also reviewed. A dose lowering technique was utilized a dhering to the principles of ALARA. COMPARISON STUDY: None. FINDINGS: Calcified plaque within the normal caliber thoracic aorta. No evidence for an aortic dissec tion. The heart is mildly enlarged. No filling defects within the pulmonary arteries to suggest a pul monary embolus. The thyroid gland enhances normally. Limited views of the upper abdomen demonstrate n ormal liver and spleen. Partially visualized hypodense lesions within the kidneys favor cysts. Normal caliber esophagus. No mediastinal or hilar lymphadenopathy. No acute fractures identified. No pneumo thorax. The central airways are patent. Mild biapical pleural-parenchymal scarlike densities with a f ew punctate pleural calcifications. This is likely chronic. There is a 7 mm focal irregular density w ithin the left lung apex image 154. This may represent a small focus of inflammatory/infectious em e. Otherwise, no focal lung consolidations to suggest a pneumonia. No evidence for pulmonary edema. T here are mild dependent changes seen within the lung bases. A 4 mm subpleural nodule within the right middle lobe on image 55. This is likely benign. IMPRESSION: 1. No evidence for a pulmonary embolus. 2. Mild cardiomegaly. 3. A 7 mm focal irregular density within the left lung apex. This favors a small focus of inflammator y/infectious change. However, [address] follow-up recommended to ensure stability/resolution. ACT 112: Positive. There are findings on this exam that require communication between the performing entity and the patient following Patient Test Result Information Act ([place] Act 112) guidelines. Electronically signed by: Jaleel Amezquita M.D. 07/14/2023 1:14 PM
[2023-07-14 13:28] LABS: Appearance Urine Clear (Clear); Bacteria Urine Automated 1+ (Negative); Bilirubin Urine Negative (Negative); Blood Urine Negative (Negative); Color Urine Dark Yellow; Epithelial Cell Urine Auto 0-5 /lpf (0-5); Glucose Urine UA Negative (Negative); Ketones Urine Negative (Negative); Leukocyte Esterase Urine 2+ (Negative); Nitrite Urine Positive (Negative); Protein Urine Negative (Negative); RBC Urine Automated 0-4 /hpf (0-4); Specific Gravity Urine 1.007 (1.000-1.030); Urobilinogen Urine Negative (Negative); WBC Urine Automated >30 /hpf (0-5); pH Urine 7.5 (4.5-7.5)
[2023-07-14] MEDS ORDERED: cefTRIAXone SODIUM 2,000 MG/70 ML BAG IV STA (13:52)
[2023-07-14] MEDS ORDERED: SODIUM CHLORIDE 0.9% 500 ML IV ONE (14:00)
--- NOTE | 2023-07-14 18:03 | History & Physical Report ---
Date of Service July 14, 2023 Assessment & Plan (1) Chest pain: Plan: 83 year old female admitted for chest pressure cardiac rule out. Chest Pain: -Hx of atherosclerotic disease, s/p endarterectomy 15 years prior. -Workup in the ED grossly negative, troponin negative x2. -EKG not available in chart however per Dr. Sotelo, NSR w/o acute abnormalities. -No past history of cardiac disease other than hypertension. -Given symptoms of chest pressure and SoB new onset in patient with history of atherosclerotic disease may be worth while to consider catheterization. -Consulted cardiology for opinion on catheterization vs stress echo, appreciate recs. -NPO in case cath needed. -EKG as needed for chest pain. -Admit to med/tele. Bacteriuria: -Frequency and dysuria for 2 days, went away with hydration and Azo. -No longer symptomatic. -U/A with 1+ bacteria, WBC, LE, Nitrite. -Given 2g Ceftriaxone in the ED for asymptomatic bacteriuria. -Given asymptomatic will not continue antibiotics at this time. -If develops symptoms can resume treatment. HTN: -chronic, stable, Continue home medications. Hyponatremia: -Chronic, stable, continue to monitor with AM renal panel. F/E/N/GI: NPO for potential cath DVT Prophylaxis: Lovenox 40mg daily. Code status: Full code. Dispo: Med/tele. (2) Bacteriuria: (3) Arteriosclerotic cardiovascular disease (ASCVD): (4) Hypertension: (5) Hyponatremia: History of Present Illness Chief Complaint: Chest pressure, SoB Primary Care Provider: Madi Barron MD Ora is an 83 year old female w/ PmHx arteriosclerotic cardiovascular disease s/p endarterectomy, chronic cerebral ischemia, dyslipidemia, HLA B27 with spondyloarthritis, recurrent UTIs, HTN, previous TIA, Osteopenia coming in to the ED for chest pressure and shortness of breath on exertion earlier in the day. Patient stated she has a walk path that she usually traverses with her dog for daily walks. She usually walks this path without issue however earlier today at around 9:30AM she was walking up a hill with her dog when she developed substernal chest pressure focused at the center of the chest along with shortness of breath. She stated that there was no pain, no nausea, no diaph oresis. She has not had any past history of cardiac issues although she does have a past history of endarterectomy due to carotid artery disease around 15 years ago. She was a past smoker although only social with a few cigarette's with friends, not an everyday smoker. She said she quit smoking prior to having the endarterectomy and had been socially smoking since high school. She denies any alcohol or drug use. She has been having some urinary frequency and pain over the weekend however took Azo and it has since gone away. She also complained of some bloating but no constipation or diarrhea. In the ED she had a negative workup except for elevated D-Dimer however troponin was notably negative x2. CTA chest no PE, mild cardiomegaly, 7mm focal irregular density within L lung apex. CXR negative. She was given Aspirin load, Ceftriaxone for asymptomatic bacteriuria, and 1L NSS before she was called for admission. Allergies Allergy/AdvReac Type Severity Reaction Status Date / Time [id number] Reductase Allergy Intermediate numbness, Verified 03/26/23 14:58 Inhibitor twitches [Frblttp-Osw-Njt Reductase Inhibitor] Sulfa (Sulfonamide AdvReac Intermediate Feeling Verified 03/26/23 14:58 Antibiotics) "bad" Home Medications Medication Instructions Recorded Confirmed Type hydralazine 25 mg tablet 25 mg PO .COMPLEX #30 tabs 10/11/21 07/14/23 Rx aspirin 25 mg-dipyridamole 200 mg See Rx Instructions .Route 09/24/22 07/14/23 Rx capsule,ext.release 12 hr .COMPLEX #180 caps multiphase amlodipine 5 mg tablet 5 mg PO DAILY #90 tabs 09/26/22 07/14/23 Rx verapamil 360 mg 24 hr 360 mg PO DAILY #90 caps 09/26/22 07/14/23 Rx capsule,extended release spironolactone 50 mg tablet 50 mg PO DAILY #90 tabs 12/19/22 07/14/23 Rx cholestyramine-aspartame 4 gram 4 g PO BID #180 packets 05/12/23 07/14/23 Rx oral powder (Prevalite) magnesium 1 cap PO DAILY 07/14/23 07/14/23 History multivitamin with minerals 1 tab PO DAILY 07/14/23 07/14/23 History (Hair,Skin and Nails tablet) Past Med/Surg History Medical History Arteriosclerotic cardiovascular disease (ASCVD) Chronic cerebral ischemia Dyslipidemia Glaucoma History of Mohs micrographic surgery for skin cancer History of recurrent UTIs History of skin cancer Hypertension Osteopenia Seasonal allergies Sensorineural hearing loss of both ears Transient ischemic attack Vulvitis Surgical History H/O carotid endarterectomy History of anesthesia reaction History of cataract surgery History of tooth extraction History of total hysterectomy with bilateral salpingo-oophorectomy (BSO) Hx of colonoscopy (~2012) S/P nasal surgery Family History Mother Hearing loss Hypertension Asthma Grandfather Stroke Grandmother Colorectal cancer Other Allergies Dementia No family history of adverse response to anesthesia No family history of bleeding disorder Denies family history of Ovarian cancer Heart disease Kidney disease Breast cancer Uterine cancer Social History Smoking Status: Former smoker Second Hand Exposure: Yes ( A CHILD); Do You Dip or Chew Tobacco: No; Hx Alcohol Use: No Hx Substance Use: No Preferred Language: Occitan Clinical Biochemical Geneticist Required: No Beliefs That Will Affect Care: None marital status: Current Living Situation: Spouse current occupational status: retired Feels Safe at Home: Yes Assistive Devices: Hearing Aid - Bilateral Review of Systems Review of Systems: As per HPI. Physical Exam Constitutional: WD/WN, vitals as above Eyes: PERRL, conjunctivae normal, anicteric sclerae Respiratory: normal respiratory effort, lungs clear to auscultation Cardiovascular: S1 S2, RRR, II/ holosystolic murmur best heard at the upper sternal borders. no peripheral edema. Gastrointestinal (Abdomen): normal bowel sounds, soft, nontender, no hepatosplenomegaly Skin: no rashes, warm and dry Psychiatric: A+Ox3, euthymic affect Results & Data Results & Data Vital Signs (Past 12 Hours) Vital Signs Temp Pulse Pulse Resp BP BP Pulse Ox 07/14/23 17:09 77 17 121/74 95 07/14/23 17:05 78 07/14/23 15:02 77 16 141/92 H 95 07/14/23 13:10 73 15 96 07/14/23 13:00 90 24 93 07/14/23 12:35 97 07/14/23 13:07 81 07/14/23 12:25 94 07/14/23 12:10 71 23 98 07/14/23 12:00 70 11 L 96 07/14/23 11:50 74 16 96 07/14/23 11:40 73 14 98 07/14/23 11:30 79 19 96 07/14/23 11:20 86 20 94 07/14/23 11:10 85 19 96 07/14/23 11:00 83 22 95 07/14/23 10:50 82 17 95 07/14/23 10:40 84 17 96 07/14/23 10:38 95 07/14/23 10:38 90 20 150/73 H 95 07/14/23 10:38 95 07/14/23 10:30 36.4 C L 97 H 20 139/73 96 O2 Del Method 07/14/23 17:09 Room Air 07/14/23 17:05 07/14/23 15:02 Room Air 07/14/23 13:10 07/14/23 13:00 07/14/23 12:35 07/14/23 13:07 07/14/23 12:25 07/14/23 12:10 07/14/23 12:00 07/14/23 11:50 07/14/23 11:40 07/14/23 11:30 07/14/23 11:20 07/14/23 11:10 07/14/23 11:00 07/14/23 10:50 07/14/23 10:40 07/14/23 10:38 Room Air 07/14/23 10:38 Room Air 07/14/23 10:38 Room Air 07/14/23 10:30 Room Air Supervising Physician Co-Signing Physician Notes I personally examined the patient and verified all isaacs points of history and exam, discussed case, and agree with decision making with Dr Tran Feeling okay now. Had chest pressure while walking up a hill. This is not happened before. Vitals noted, in general she is awake and alert pleasant no distress. HEENT normocephalic atraumatic mucous membranes moist. Breathing unlabored no accessory muscle use good effort. Skin shows no rashes no pallor or icterus. Neuro without focal deficits. Chest pressuregiven reasonably typical symptoms in a patient with known vascular disease, rule out DE, and then ask cardiology for evaluation regarding stress testing versus moving directly to cath Otherwise as above Resident Activity Tracking Resident Involvement: Resident Care Provided Care Provided: Adult Hospital Medicine
--- NOTE | 2023-07-14 18:45 | Billing Data ---
Date of Service July 14, 2023 Coding Level of Care Code 86110 INT INP/OBS CARE
[2023-07-14] MEDS ORDERED: ACETAMINOPHEN 325 MG TAB PO PRN (21:30)
[2023-07-14] MEDS ORDERED: POLYETHYLENE (MIRALAX) 17 GM PACK PO PRN (21:30)
[2023-07-14] MEDS ORDERED: hydrALAZINE HCL 25 MG TAB PO PRN (21:30)
[2023-07-14] MEDS ORDERED: ONDANSETRON INJ 2 MG/ML 2 ML VIAL IV PRN (21:30)
[2023-07-14] MEDS ORDERED: SIMETHICONE 40 MG/0.6 ML 30ML PO PRN (21:30)
[2023-07-14] MEDS ORDERED: ENOXAPARIN INJ 40 MG/0.4 ML SYR SQ SCH (21:45)
[2023-07-14] MEDS: DIPYRIDAMOLE/ASPIRIN CAP PO SCH (22:16)
[2023-07-14] MEDS: CHOLESTYRAMINE LIGHT 4 GM PKT PO SCH (22:16)
[2023-07-15 05:12] LABS: Albumin Level 3.8 gm/dl (3.4-5.0); BUN Creatinine Ratio 22.1 (10-20); Calcium 8.9 mg/dl (8.6-10.3); Creatinine Clr Calc Pharmacy 48.2 ml/min; Est GFR (African American) 82.2 ml/min; Est GFR (Non-African American) 70.9 ml/min; Phosphorus 3.1 mg/dl (2.5-4.9); Potassium 4.5 mmol/L (3.5-5.1)
--- NOTE | 2023-07-15 08:14 | Medical Student Progress Note ---
Date of Service July 15, 2023 Assessment & Plan (1) Chest pain: Plan: 83 year old female admitted for chest pressure cardiac rule out. Chest Pain: -Hx of atherosclerotic disease, s/p endarterectomy 15 years prior. -Workup in the ED grossly negative, troponin negative x2. -EKG not available in chart however per Dr. Sotelo, NSR w/o acute abnormalities. -No past history of cardiac disease other than hypertension. -Given symptoms of chest pressure and SoB new onset in patient with history of atherosclerotic disease may be worth while to consider catheterization. -Consulted cardiology for opinion on catheterization vs stress echo, appreciate recs. -NPO in case cath needed. -EKG as needed for chest pain. -Admited to med/tele. Bacteriuria: -Frequency and dysuria for 2 days, went away with hydration and Azo. -No longer symptomatic. -U/A with 1+ bacteria, WBC, LE, Nitrite. -Given 2g Ceftriaxone in the ED for asymptomatic bacteriuria. -Given asymptomatic will not continue antibiotics at this time. -If develops symptoms can resume treatment. HTN: -chronic, stable, Continue home medications. Hyponatremia: -Chronic, stable, continue to monitor with AM renal panel. F/E/N/GI: NPO for potential cath DVT Prophylaxis: Lovenox 40mg daily. Code status: Full code. Dispo: Med/tele. (2) Bacteriuria: (3) Arteriosclerotic cardiovascular disease (ASCVD): (4) Hypertension: (5) Hyponatremia: Admission and Anticipated Discharge Date Admission Date: July 14, 2023 Subjective Pleasant 83 year old woman who presented with chest pain in the ED 07/14. This morning feels back at her baseline with a small amount of chest tightness that is not painful. She did not have any chest pain, palpitations, or shortness of breath over night. No lightheadedness, nausea or vomiting. Review of Systems Review of Systems: as per hpi. Physical Exam Constitutional: well appearing and in no acute distress Respiratory: lungs clear to auscultation bilaterally, equal breath sounds, no crackles or wheezes Cardiovascular: Strong radial pulses bilaterally, normal rate and rhythm, no S3 or S4 detected, no edema Skin: warm and pink Results & Data Vital Signs (Past 12 Hours) Vital Signs Pulse Pulse Resp BP BP Pulse Ox Pulse Ox 07/15/23 07:22 135/77 07/15/23 07:22 85 22 95 07/15/23 07:21 80 17 07/15/23 06:00 82 15 94 07/15/23 06:00 125/58 L 07/15/23 05:00 73 22 93 07/15/23 05:00 123/67 07/15/23 04:00 74 14 93 07/15/23 04:00 118/62 07/15/23 07:26 77 16 135/77 94 07/15/23 03:00 75 18 117/70 92 07/15/23 01:00 77 16 120/61 93 07/14/23 23:10 82 18 151/81 H 93 07/14/23 23:48 95 07/14/23 23:00 88 07/14/23 22:00 76 21 122/77 07/14/23 21:04 84 O2 Del Method O2 Del Method 07/15/23 07:22 07/15/23 07:22 07/15/23 07:21 07/15/23 06:00 07/15/23 06:00 07/15/23 05:00 07/15/23 05:00 07/15/23 04:00 07/15/23 04:00 07/15/23 07:26 Room Air 07/15/23 03:00 07/15/23 01:00 07/14/23 23:10 07/14/23 23:48 Room Air 07/14/23 23:00 07/14/23 22:00 07/14/23 21:04
[2023-07-15] MEDS: DIPYRIDAMOLE/ASPIRIN CAP PO SCH ×2 (08:40→09:28)
[2023-07-15] MEDS ORDERED: amLODIPine BESYLATE 5 MG TAB PO SCH (09:00)
[2023-07-15] MEDS ORDERED: SPIRONOLACTONE 25 MG TAB PO SCH (09:00)
[2023-07-15] MEDS ORDERED: VERAPAMIL HCL 180 MG TABCR PO SCH (09:00)
[2023-07-15] MEDS: CHOLESTYRAMINE LIGHT 4 GM PKT PO SCH (09:28)
--- NOTE | 2023-07-15 14:25 | XCELERA ---
[id number] [id number]
--- NOTE | 2023-07-15 15:33 | Electrocardiogram Report ---
Test Reason : Blood Pressure : / mmHG Vent. Rate : 093 BPM Atrial Rate : 093 BPM P-R Int : 140 ms QRS Dur : 078 ms QT Int : 342 ms P-R-T Axes : 077 063 072 degrees QTc Int : 425 ms Normal sinus rhythm Possible Left atrial enlargement Abnormal ECG When compared with ECG of 25-MAR-2018 18:13, No significant change Confirmed by Elmo Martinez ([id number]) on 07/15/2023 3:33:32 PM Referred By: REFERRED SELF Confirmed By:Elmo Martinez
--- NOTE | 2023-07-15 16:55 | Cardiology Consultation ---
Date of Consultation July 15, 2023 Assessment & Plan (1) Chest pain: (2) Hypertension: (3) Dyslipidemia: (4) Arteriosclerotic cardiovascular disease (ASCVD): Plan Mrs. Bland is an 83-year-old female with a history of Hypertension, Dyslipidemia, Chronic Cerebral Ischemia s/p TIA 2011, and Carotid Artery Stenosis s/p Left Carotid Endarterectomy who presented to [facility] ER on 07/14/23 complaining of chest pressure in a mild sensation of dyspnea that had its onset when she was walking her dog on the uphill segment of her usual walking route. She did not have to stop walking nor did it get progressively worse as she continued to walk. She went back to her home and her mild dyspnea completely resolved very quickly, but she had persistent pressure in her chest which lasted for about 2-3 hours in total. The pain did not radiate anywhere else nor did she have any other associated symptoms. She specifically denies any associated nausea vomiting, or diaphoresis. After her initial episode of chest pressure, she has not had any recurrence. Patient denies any prior cardiac history or prior cardiac events. She has never experienced these symptoms before either with exertion or at rest. At the present time she feels back to her usual self and is completely Workup in the ER showed unremarkable high sensitivity troponin I levels, EKG showed NSR at 93 bpm with possible left atrial enlargement. No dynamic ST segment or T-wave abnormalities. cardiac monitor shows normal sinus rhythm without evidence of any arrhythmias. Patient is currently admitted for observation and for further evaluation. She is currently asymptomatic. Her chest pressure was atypical in that it did not worsen with ongoing ambulation and lasted for 2-3 hours in total after she stopped walking. We discussed her cardiac risk factors including age, postmenopausal state, and the presence of other vascular disease. Because her chest pain is atypical, would not recommend invasive workup -- we do recommend a stress echocardiogram. If this is negative she may be discharged to home without further ischemic workup unless she develops classic angina pectoris or new limiting cardiopulmonary symptoms. Recommend the followin. Stress Echocardiogram. 2. Continue Aggrenox 25-200 mg every 12 hours (this contains aspirin). 3. Continue Amlodipine 5 mg daily. 4. Continue Verapamil ER 360 mg daily. 5. Continue Hydralazine 25 mg as directed. 6. Continue Spironolactone 50 mg daily. 7. Continue Questran to lower cholesterol as she is intolerant of statin medications. 8. In light of her cerebrovascular disease, she would likely benefit with a PCSK9 inhibitor such as Repatha. 9. Mediterranean diet. Thank you for asking us to see this patient in consultation. If we can be of any further assistance to you please contact myself or Dr. Martinez. History of Present Illness Reason for Consultation: Chest Pain. Requesting Physician: Garcia Ambriz DO Attending Physician: Elmo Martinez MD History of Present Illness Mrs. Bland is an 83-year-old female with a history of Hypertension, Dyslipidemia, Chronic Cerebral Ischemia s/p TIA 2011, and Carotid Artery Stenosis s/p Left Carotid Endarterectomy who presented to [facility] ER on 07/14/23 complaining of chest pressure in a mild sensation of dyspnea that had its onset when she was walking her dog on the uphill segment of her usual walking route. She did not have to stop walking nor did it get progressively worse as she continued to walk. She went back to her home and her mild dyspnea completely resolved very quickly, but she had persistent pressure in her chest which lasted for about 2-3 hours in total. The pain did not radiate anywhere else nor did she have any other associated symptoms. She specifically denies any associated nausea vomiting, or diaphoresis. After her initial episode of chest pressure, she has not had any recurrence. Patient denies any prior cardiac history or prior cardiac events. She has never experienced these symptoms before either with exertion or at rest. At the present time she feels back to her usual self. Workup in the ER showed unremarkable high sensitivity troponin I levels, EKG showed NSR at 93 bpm with possible left atrial enlargement. No dynamic ST segment or T-wave abnormalities. cardiac monitor shows normal sinus rhythm without evidence of any arrhythmias. Patient is currently admitted for observation and for further evaluation. Allergies Allergy/AdvReac Type Severity Reaction Status Date / Time Nsofjnn-ZEY-BkJ Reductase Allergy Intermediate numbness, Verified 03/26/23 14:58 Inhibitor twitches [Zqkwdxq-Let-Vlf Reductase Inhibitor] Sulfa (Sulfonamide AdvReac Intermediate Feeling Verified 03/26/23 14:58 Antibiotics) "bad" Home Medications Medication Instructions Recorded Confirmed Type hydralazine 25 mg tablet 25 mg PO .COMPLEX #30 tabs 10/11/21 07/14/23 Rx aspirin 25 mg-dipyridamole 200 mg See Rx Instructions .Route 09/24/22 07/14/23 Rx capsule,ext.release 12 hr .COMPLEX #180 caps multiphase amlodipine 5 mg tablet 5 mg PO DAILY #90 tabs 09/26/22 07/14/23 Rx verapamil 360 mg 24 hr 360 mg PO DAILY #90 caps 09/26/22 07/14/23 Rx capsule,extended release spironolactone 50 mg tablet 50 mg PO DAILY #90 tabs 12/19/22 07/14/23 Rx cholestyramine-aspartame 4 gram 4 g PO BID #180 packets 05/12/23 07/14/23 Rx oral powder (Prevalite) magnesium 1 cap PO DAILY 07/14/23 07/14/23 History multivitamin with minerals 1 tab PO DAILY 07/14/23 07/14/23 History (Hair,Skin and Nails tablet) Patient History Medical History Arteriosclerotic cardiovascular disease (ASCVD) Chronic cerebral ischemia Dyslipidemia Glaucoma History of Mohs micrographic surgery for skin cancer History of recurrent UTIs History of skin cancer Hypertension Osteopenia Seasonal allergies Sensorineural hearing loss of both ears Transient ischemic attack Vulvitis Surgical History H/O carotid endarterectomy History of anesthesia reaction History of cataract surgery History of tooth extraction History of total hysterectomy with bilateral salpingo-oophorectomy (BSO) Hx of colonoscopy (~2012) S/P nasal surgery Family History Mother Hearing loss Hypertension Asthma Grandfather Stroke Grandmother Colorectal cancer Other Allergies Dementia No family history of adverse response to anesthesia No family history of bleeding disorder Denies family history of Ovarian cancer Heart disease Kidney disease Breast cancer Uterine cancer Social History Smoking Status: Never smoker Second Hand Exposure: Yes ( A CHILD); Do You Dip or Chew Tobacco: No; Hx Alcohol Use: No Hx Substance Use: No Preferred Language: Wallisian Communication Ability: Effective Burrito Maker Required: No Beliefs That Will Affect Care: Shinto marital status: Current Living Situation: Alone current occupational status: retired Other Information That Helps Us Care for You: No Feels Safe at Home: Yes Assistive Devices: None Assistive Devices Comment: does not have all of these with her Review of Systems Review of Systems: -- 10 point ROS completed and is negative with the exception of what is mentioned in the HPI. Physical Exam Physical Exam: Blood pressure 127/76. Pulse 82 and regular. GENERAL: Patient in no acute distress. HEENT: Head is atraumatic, normocephalic. EOM's intact. Facies symmetric. No perioral cyanosis. NECK: No JVD. JVP is not elevated. Carotid upstrokes are + 2 bilaterally without bruits. Well healed surgical scar in the left carotid groove. CHEST/LUNGS: Clear to auscultation throughout all lung nobles. No wheezes, rales, or crackles. CVS: S1 and S2 are regular without murmurs, gallops, or rubs. PMI is nondisplaced. No lifts, heaves, or thrills. No abdominal aortic or renal bruits. ABDOMINAL EXAM: Bowel sounds are present. No masses, organomegaly, or tenderness. EXTREMITIES: No clubbing or cyanosis. No edema. Intact radial pulses bilaterally. NEUROLOGIC EXAM: Patient is awake, alert, and oriented. Pleasant and cooperative. Answers questions appropriately. Speech is clear. Stress Echocardiogram ordered. Results & Data Vital Signs (Past 12 Hours) Vital Signs Temp Pulse Pulse Resp BP BP Pulse Ox 07/15/23 16:31 36.4 C L 77 19 135/77 94 07/15/23 15:00 85 19 131/59 L 94 07/15/23 13:35 86 15 122/65 96 07/15/23 12:00 79 20 116/62 96 07/15/23 10:00 83 15 95 07/15/23 10:00 131/74 07/15/23 09:00 72 16 93 07/15/23 09:00 127/76 07/15/23 08:00 75 13 94 07/15/23 08:00 129/65 07/15/23 07:22 135/77 07/15/23 07:22 85 22 95 07/15/23 07:21 80 17 07/15/23 06:00 82 15 94 07/15/23 06:00 125/58 L 07/15/23 05:00 73 22 93 07/15/23 05:00 123/67 07/15/23 07:26 77 16 135/77 94 O2 Del Method 07/15/23 16:31 07/15/23 15:00 Room Air 07/15/23 13:35 Room Air 07/15/23 12:00 Room Air 07/15/23 10:00 07/15/23 10:00 07/15/23 09:00 07/15/23 09:00 07/15/23 08:00 07/15/23 08:00 07/15/23 07:22 07/15/23 07:22 07/15/23 07:21 07/15/23 06:00 07/15/23 06:00 07/15/23 05:00 07/15/23 05:00 07/15/23 07:26 Room Air Laboratory Results Laboratory Results - last 24 hr 07/15/23 04:37 Sodium 130 L Potassium 4.5 Chloride 101 Carbon Dioxide 22 Anion Gap 7 BUN 17 Creatinine 0.77 Est Cr Clr Drug Dosing 48.2 Est GFR ( Amer) 82.2 Est GFR (Non-Af Amer) 70.9 BUN/Creatinine Ratio 22.1 H Glucose 93 Calcium 8.9 Phosphorus 3.1 Albumin 3.8 Diagnostic Findings CXR 07/14/23: No pneumothorax. No pleural effusions. The cardiac silhouette remains top normal in size. No evidence for pulmonary edema. No new focal lung consolidations to suggest a pneumonia. A few linear densities the right lung base favor subsegmental atelectasis or scarring. This is similar to the prior study. Calcifications again noted within the aortic knob. There is a punctate calcified granuloma within the left lung apex. No acute fractures identified. IMPRESSION: No significant change compared to the prior study. No acute process. CTA CHEST 07/14/23: Calcified plaque within the normal caliber thoracic aorta. No evidence for an aortic dissection. The heart is mildly enlarged. No filling defects within the pulmonary arteries to suggest a pulmonary embolus. The thyroid gland enhances normally. Limited views of the upper abdomen demonstrate normal liver and spleen. Partially visualized hypodense lesions within the kidneys favor cysts. Normal caliber esophagus. No mediastinal or hilar lymphadenopathy. No acute fractures identified. No pneumothorax. The central airways are patent. Mild biapical pleural-parenchymal scarlike densities with a few punctate pleural calcifications. This is likely chronic. There is a 7 mm focal irregular density within the left lung apex image 154. This may represent a small focus of inflammatory/infectious change. Otherwise, no focal lung consolidations to suggest a pneumonia. No evidence for pulmonary edema. There are mild dependent changes seen within the lung bases. A 4 mm subpleural nodule within the right middle lobe on image 55. This is likely benign. IMPRESSION: 1. No evidence for a pulmonary embolus. 2. Mild cardiomegaly. 3. A 7 mm focal irregular density within the left lung apex. This favors a small focus of inflammatory/infectious change. However, [address] follow-up recommended to ensure stability/resolution. Medications Administered Medication List Amlodipine Besylate (Amlodipine Besylate 5 Mg Tab) 5 mg PO DAILY NEETA Stop: 08/14/23 08:59 Last Admin: 07/15/23 08:39 Dose: 5 mg Documented By: SALLY Cholestyramine Resin (Cholestyramine Light 4 Gm Pkt) 4 gm PO BID@1000,2200 NEETA Stop: 08/13/23 21:59 Last Admin: 07/15/23 09:28 Dose: 4 gm Documented By: Admin: 07/14/23 22:16 Dose: Not Given Documented By: Dipyridamole/Aspirin (Dipyridamole/Aspirin Cap) 1 cap PO BID NEETA Stop: 08/13/23 21:44 Last Admin: 07/15/23 09:28 Dose: 1 cap Documented By: Admin: 07/14/23 22:16 Dose: 1 cap Documented By: Enoxaparin Sodium (Enoxaparin Inj 40 Mg/0.4 Ml Syr) 40 mg SQ Q24H NEETA Stop: 08/13/23 21:44 Last Admin: 07/14/23 23:03 Dose: 40 mg Documented By: Spironolactone (Spironolactone 25 Mg Tab) 50 mg PO DAILY NEETA Stop: 08/14/23 08:59 Last Admin: 07/15/23 08:40 Dose: 50 mg Documented By: SALLY Verapamil HCl (Verapamil Hcl 180 Mg Tabcr) 360 mg PO DAILY NEETA Stop: 08/14/23 08:59 Last Admin: 07/15/23 08:40 Dose: 360 mg Documented By: SALLY Discontinued Medications Aspirin (Aspirin Chew 324 Mg) 243 mg PO NOW STA Stop: 07/14/23 10:43 Last Admin: 07/14/23 10:47 Dose: 243 mg Documented By: SALLY Ceftriaxone Sodium (Rocephin) 2,000 mg in 70 mls @ 140 mls/hr IV NOW STA Stop: 07/14/23 14:21 Last Infusion: 07/14/23 14:59 Dose: 0 mls/hr Documented By: Admin: 07/14/23 14:07 Dose: 140 mls/hr Documented By: SALLY Sodium Chloride (Nss) 500 mls @ 999 mls/hr IV .Q31M ONE Stop: 07/14/23 14:30 Last Infusion: 07/14/23 15:00 Dose: 0 mls/hr Documented By: Admin: 07/14/23 14:07 Dose: 999 mls/hr Documented By: SALLY Ioversol (Optiray 320 500ml) 118 ml IV ONCE ONE Stop: 07/14/23 13:00 Last Admin: 07/14/23 13:00 Dose: 118 ml Documented By: ANNIE PG Care Time/CCT Total # of Minutes Spent Total Time Spent with Patient: Total time spent is greater than 50% in coordination of care (as documented) at patient's floor/unit and/or counseling patient:42 [place] [address] ER DEPT VISIT HIGH LVL 5 Patient Type New History Detailed Exam Detailed Medical Decision Making Moderate Complexity Diagnoses Chest pain R07.9 Hypertension I10 Dyslipidemia E78.5 Arteriosclerotic cardiovascular disease (ASCVD) I25.10 Time Spent (min) 58
--- NOTE | 2023-07-15 17:13 | Discharge Summary ---
Date of Service July 15, 2023 Admission HPI Per Admitting Provider Ora is an 83 year old female w/ PmHx arteriosclerotic cardiovascular disease s/p endarterectomy, chronic cerebral ischemia, dyslipidemia, HLA B27 with spondyloarthritis, recurrent UTIs, HTN, previous TIA, Osteopenia coming in to the ED for chest pressure and shortness of breath on exertion earlier in the day. Patient stated she has a walk path that she usually traverses with her dog for daily walks. She usually walks this path without issue however earlier today at around 9:30AM she was walking up a hill with her dog when she developed substernal chest pressure focused at the center of the chest along with s hortness of breath. She stated that there was no pain, no nausea, no diaphoresis. She has not had any past history of cardiac issues although she does have a past history of endarterectomy due to carotid artery disease around 15 years ago. She was a past smoker although only social with a few cigarette's with friends, not an everyday smoker. She said she quit smoking prior to having the endarterectomy and had been socially smoking since high school. She denies any alcohol or drug use. She has been having some urinary frequency and pain over the weekend however took Azo and it has since gone away. She also complained of some bloating but no constipation or diarrhea. In the ED she had a negative workup except for elevated D-Dimer however troponin was notably negative x2. CTA chest no PE, mild cardiomegaly, 7mm focal irregular density within L lung apex. CXR negative. She was given Aspirin load, Ceftriaxone for asymptomatic bacteriuria, and 1L NSS before she was called for admission. Admission Exam (Per Admitting) Constitutional Constitutional: WD/WN, vitals as above Eyes: PERRL, conjunctivae normal, anicteric sclerae Respiratory: normal respiratory effort, lungs clear to auscultation Cardiovascular: S1 S2, RRR, II/ holosystolic murmur best heard at the upper sternal borders. no peripheral edema. Gastrointestinal (Abdomen): normal bowel sounds, soft, nontender, no hepatosplenomegaly Skin: no rashes, warm and dry Psychiatric: A+Ox3, euthymic affect Discharge Data Consultations 07/14/23 17:15 ED Decision to Admit Stat 07/14/23 21:30 Consult Cardiology Routine Hospital Course (1) Chest pain: Chest Pain: -Hx of atherosclerotic disease, s/p endarterectomy 15 years prior. -Workup in the ED grossly negative, troponin negative x2. -EKG w/ normal sinus rhythm w/o acute abnormalities -No past history of cardiac disease other than hypertension. -Consulted cardiology, performed stress echo which was normal -With history of onset with activity, costochondral tenderness is most likely, counseled on stretching exercises and encouraged to return to PCP if not resolved by Aug 05. Return to ED with worsening or alternative symptoms present. Bacteriuria: -Frequency and dysuria for 2 days, went away with hydration and Azo. -No longer symptomatic. -U/A with 1+ bacteria, WBC, LE, Nitrite. -Given 2g Ceftriaxone in the ED for asymptomatic bacteriuria. -Given asymptomatic will not continue antibiotics at this time. -If develops symptoms can resume treatment. (2) Bacteriuria: (3) Arteriosclerotic cardiovascular disease (ASCVD): (4) Hypertension: (5) Hyponatremia: Supervising Physician Co-Signing Physician Notes I personally examined the patient and verified all isaacs points of history and exam, discussed case, and agree with decision making with Dr Tran pain somewhat ongoing stress test negative. Vitals noted, in general she is awake and alert pleasant no distress. HEENT normocephalic atraumatic mucous membranes moist. Breathing unlabored no accessory muscle use good effort. Skin shows no rashes no pallor or icterus. Neuro without focal deficits. L sided ribs exhaled - balanced ligamentous tension - improved some. pt tolerated well. Chest pressurestress negative, troponins negative. likely was rib related. OMT as above. taught stretches. formal consult for ongoing OMT if doesn't self-resolve as outpt. Otherwise as above
--- NOTE | 2023-07-15 19:34 | Billing Data ---
Date of Service July 15, 2023 Coding Level of Care Code 15230 IN/OBS DISCH 30 MIN/LESS
== END 2023-07-15 16:31 | disposition home or self-care (01) ==
LOC: ED 10:23 → EDINP 18:27 → INTOOBSV 18:27 → EDINP 21:31